=== PATIENT | male | born 1980 | race Caucasian/White ===

== ENCOUNTER 2022-05-09 08:02 | Inpatient (IN) ==
--- NOTE | 2022-05-09 08:11 | Emergency Department Note ---
HPI General Chief complaint: Cold/Flu Symptoms Stated complaint: URI symptoms Time Seen by Provider: 05/09/22 08:11 Source: patient Mode of arrival: ambulatory Limitations: no limitations History of Present Illness HPI Narrative: 41-year-old male with no past medical history presenting with cough and shortness of breath. Patient states he was diagnosed with pneumonia at the emergency department in [place] on April 29. He was started on azithromycin, which he took a full course of, but his symptoms have not been improving. He endorses a cough productive of green sputum and shortness of breath. No fever. Denies any sick contacts. He went to urgent care today and had a chest x-ray which showed almost complete opacification of the left lung, likely pleural effusion or empyema. Sent to the ED for further management. On arrival he is satting 90 to 92% on room air. No chest pain, leg swelling, headache, abdominal pain, vomiting, or difficulty swallowing. No trauma or injury. Related Data Home Medications Medication Instructions Recorded Confirmed No Known Home Meds 05/09/22 05/09/22 Allergies Allergy/AdvReac Type Severity Reaction Status Date / Time Loracarbef [From Lorabid] Allergy Unknown Unknown Verified 05/09/22 07:12 povidone-iodine Allergy Unknown Unknown Verified 05/09/22 07:12 [From Betadine] Sulfa (Sulfonamide Allergy Unknown Unknown Verified 05/09/22 07:12 Antibiotics) Penicillins AdvReac Unknown Unknown Verified 05/09/22 07:12 Review of Systems ROS ROS Narrative: Narrative: Constitutional: Denies fever or chills ENT ED: Denies throat pain Cardiovascular: Denies chest pain Respiratory: Reports shortness of breath and cough Gastrointestinal: Denies abdominal pain, nausea, vomiting or diarrhea Genitourinary: Denies dysuria Musculoskeletal: Denies back pain or joint swelling Integumentary: Denies rash or lesions Neurological: Denies headache or weakness Psychiatric: Denies anxiety Endocrine: Denies fatigue Hematological/Lymphatic: Denies easy bruising PFSH Narrative Patient History Narrative: Narrative: Medical/Surgical/Family History All Active Problems (Updated 05/09/22 @ 13:23 by Modesto Green MD) Clinical sepsis (Acute) Pleural effusion on left (Acute) Pneumonia (Acute) Cough (Acute) Social History Smoking Status: Unknown if ever smoked Exam Narrative Narrative: Narrative: General Limitations: no limitations General appearance: Present alert and in no apparent distress Head Head: Present atraumatic and normocephalic Eye Eye: Present normal appearance and EOMI; Absent scleral icterus or conjunctival injection ENT ENT: Present normal oropharynx and mucous membranes moist Neck Neck: Present normal inspection, full ROM and trachea midline; Absent meningismus or lymphadenopathy Chest Chest: Present symmetric chest wall rise Respiratory Respiratory: Present other (Diminished breath sounds throughout the entire left lung); Absent respiratory distress, wheezes, stridor or accessory muscle use Cardiovascular Cardiovascular: Present normal rhythm and tachycardia; Absent systolic murmur or diastolic murmur Adbominal Abdominal: Present soft; Absent distention, tenderness, guarding, rebound, rigidity, organomegaly or mass Extremities Extremities: Present normal inspection; Absent pretibial edema Back Back: Absent CVA tenderness (R) or CVA tenderness (L) Neurological Neurological: Present alert and oriented X3; Absent motor sensory deficit Psychiatric Psychiatric: Present normal affect and normal mood Skin Skin: Present warm (WNL) and dry Course Consultations Consultation #1: Dr. Green, hospitalist Time: 12:18 Vital Signs Vital signs: Vital Signs Temperature 100.3 F H 05/09/22 08:03 Pulse Rate 140 H 05/09/22 08:03 Respiratory Rate 20 05/09/22 08:03 Blood Pressure 156/103 05/09/22 08:03 Pulse Oximetry (%) 98 05/09/22 08:03 Temperature 96.9 F L 05/09/22 14:05 Pulse Rate 118 H 05/09/22 14:05 Respiratory Rate 20 05/09/22 14:05 Blood Pressure 148/95 05/09/22 14:05 Pulse Oximetry (%) 93 05/09/22 14:05 [facility] Narrative Medical decision making narrative: 41-year-old male presenting with cough and shortness of breath. He is bord vlaerie hypoxic on arrival, placed on 2 L nasal cannula with improvement. COVID and influenza swabs are negative. Likely pneumonia and empyema given chest x- ray findings from today. Radiology consulted and will perform a thoracentesis. Fluid studies ordered. Labs notable for leukocytosis to 15.3 and mild hyponatremia to 130. Lactate is normal 1.5. Blood culture sent. Procalcitonin slightly elevated at 0.18. Dose of IV vancomycin and normal saline bolus ordered. Will plan for admission. 1218: I spoke with Dr. Green, hospitalist, who will admit the patient. Wound culture ordered. Lab Data Lab results reviewed: Yes I reviewed the patient's lab results. Result diagrams: 05/09/22 08:47 05/09/22 08:47 Labs: Lab Results 05/09/22 05/09/22 05/09/22 Range/Units 08:47 08:47 08:47 WBC 15.3 H (4.5-11.0) K/mcL RBC 5.04 (4.63-6.08) M/mcL Hgb 14.5 (13.7-17.5) g/dL Hct 45.7 (40.1-51.0) % MCV 90.7 (80.0-100.0) fL MCH 28.8 (26.0-34.0) pg MCHC 31.7 (31.0-36.0) g/dL RDW 13.6 (11.5-14.5) % Plt Count 515 H (140-440) K/mcL MPV 9.5 (7.4-10.4) fL Neut % (Auto) 82.0 H (38.0-78.0) % Lymph % (Auto) 4.5 L (15.5-49.0) % [place] % (Auto) 12.5 H (1.0-12.0) % Eos % (Auto) 0.5 (0.0-7.0) % Baso % (Auto) 0.5 (0.0-2.0) % Lymph # (Auto) 0.69 L (1.50-4.80) K/mcL [place] # (Auto) 1.90 H (0.10-0.90) K/mcL Eos # (Auto) 0.08 (0.00-0.70) K/mcL Baso # (Auto) 0.07 (0.00-0.30) K/mcL Absolute Neutrophils 12.51 H (1.80-8.00) K/mcL VBG Lactic Acid 1.5 (0.5-2.0) mmol/L Sodium 130 L (133-145) mmol/L Potassium 4.3 (3.3-5.1) mmol/L Chloride 94 L (96-108) mmol/L Carbon Dioxide 19 L (22-30) mmol/L Anion Gap 17.0 H (8.0-16.0) BUN 19 (6-20) mg/dL Creatinine 1.1 (0.7-1.2) mg/dL GFR Calculation 83 Glucose 143 H (70-105) mg/dL Calcium 8.9 (8.6-10.4) mg/dL Total Bilirubin 0.6 (0.1-1.0) mg/dL AST 15 (<40) U/L ALT 13 (<40) U/L Alkaline Phosphatase 76 (39-117) U/L Total Protein 7.2 (5.9-8.4) gm/dL Albumin 2.6 L (3.2-5.2) gm/dL Globulin 4.6 H (2.2-3.7) gm/dL Albumin/Globulin Ratio 0.6 L (1.0-2.3) Procalcitonin (<0.10) ng/mL Pleural Total Protein gm/dL Pleural Albumin gm/dL Pleural LDH (<122) U/L Pleural Glucose mg/dL Pleural Amylase U/L 05/09/22 05/09/22 Range/Units 08:47 10:45 WBC (4.5-11.0) K/mcL RBC (4.63-6.08) M/mcL Hgb (13.7-17.5) g/dL Hct (40.1-51.0) % MCV (80.0-100.0) fL MCH (26.0-34.0) pg MCHC (31.0-36.0) g/dL RDW (11.5-14.5) % Plt Count (140-440) K/mcL MPV (7.4-10.4) fL Neut % (Auto) (38.0-78.0) % Lymph % (Auto) (15.5-49.0) % [place] % (Auto) (1.0-12.0) % Eos % (Auto) (0.0-7.0) % Baso % (Auto) (0.0-2.0) % Lymph # (Auto) (1.50-4.80) K/mcL [place] # (Auto) (0.10-0.90) K/mcL Eos # (Auto) (0.00-0.70) K/mcL Baso # (Auto) (0.00-0.30) K/mcL Absolute Neutrophils (1.80-8.00) K/mcL VBG Lactic Acid (0.5-2.0) mmol/L Sodium (133-145) mmol/L Potassium (3.3-5.1) mmol/L Chloride (96-108) mmol/L Carbon Dioxide (22-30) mmol/L Anion Gap (8.0-16.0) BUN (6-20) mg/dL Creatinine (0.7-1.2) mg/dL GFR Calculation Glucose (70-105) mg/dL Calcium (8.6-10.4) mg/dL Total Bilirubin (0.1-1.0) mg/dL AST (<40) U/L ALT (<40) U/L Alkaline Phosphatase (39-117) U/L Total Protein (5.9-8.4) gm/dL Albumin (3.2-5.2) gm/dL Globulin (2.2-3.7) gm/dL Albumin/Globulin Ratio (1.0-2.3) Procalcitonin 0.18 H (<0.10) ng/mL Pleural Total Protein 4.7 gm/dL Pleural Albumin 2.7 gm/dL Pleural LDH 1214 H (<122) U/L Pleural Glucose < 2 mg/dL Pleural Amylase 21 U/L ED POC Tests ED POC Tests: NILAY - Influenza A Negative NILAY - Influenza B Negative NILAY - SARS Antigen Negative Radiology Data Radiology results reviewed: Yes I reviewed the patient's radiology results. Radiology results narrative: Ordering Physician:Deric Longoria PA-C Date of Service:05/09/22 Procedure(s):XR chest 2V CLINICAL INFORMATION: Cough and dyspnea COMPARISON: 04/29/2022 TECHNIQUE: PA and Lateral views FINDINGS: Subtotal opacification of the entire left thorax likely represents massive pleural effusion which has shifted the cardiomediastinal silhouette rightward. There is minimal residual left apical aeration. Right lung is well-expanded and clear. Cardiomediastinal silhouette and pulmonary vasculature are normal. IMPRESSION: Complete opacification of the left thorax by volume occupying process. This is most compatible with a massive left pleural effusion. Suggest ultrasound-guided thoracentesis Interpreted and Authenticated by: Russell Lozada 05/09/22 EKG Data EKG #1: EKG attestation: Yes I reviewed and interpreted this EKG. and Yes There are no EKG findings of acute coronary syndrome EKG results narrative: Sinus tachycardia at [address] elevation or depression. Interpretation: no acute changes Discharge Plan Patient/Caregiver Discharge Instructions Pt seen by [employer]/PA only: No Clinical Impression: Pleural effusion on left Patient Disposition: Xfer As Inpt ([facility]) Discharge Date/Time: 05/09/22 13:40 Discharge Comment: to room 108 @[id number]
[2022-05-09] MEDS ORDERED: 0.9 % SODIUM CHLORIDE 1,000 ML IV ONE ×3 (08:18→11:03)
[2022-05-09] MEDS ORDERED: ACETAMINOPHEN 1,000 MG/100 ML BAG IV ONE (08:30)
[2022-05-09] MEDS ORDERED: morphine 4 MG/ML VIAL IV ONE (08:30)
[2022-05-09] MEDS ORDERED: LEVOFLOXACIN 750 MG/150 ML BAG IV ONE (08:33)
[2022-05-09 09:28] LABS: Basophils # (Auto) 0.07 K/mcL (0.00-0.30); Basophils % (Auto) 0.5 % (0.0-2.0); Eosinophils # (Auto) 0.08 K/mcL (0.00-0.70); Eosinophils % (Auto) 0.5 % (0.0-7.0); Hematocrit 45.7 % (40.1-51.0); Hemoglobin 14.5 g/dL (13.7-17.5); Lymphocytes # (Auto) 0.69 K/mcL (1.50-4.80); Lymphocytes % (Auto) 4.5 % (15.5-49.0); Mean Cell Volume 90.7 fL (80.0-100.0); Mean Corpuscular HGB Conc 31.7 g/dL (31.0-36.0); Mean Platelet Volume 9.5 fL (7.4-10.4); Monocytes % (Auto) 12.5 % (1.0-12.0); Platelet Count 515 K/mcL (140-440); RBC 5.04 M/mcL (4.63-6.08); Red Cell Distribution Width 13.6 % (11.5-14.5); WBC 15.3 K/mcL (4.5-11.0)
[2022-05-09 09:57] LABS: ALT/SGPT 13 U/L (<40); AST/SGOT 15 U/L (<40); Albumin 2.6 gm/dL (3.2-5.2); Albumin/Globulin Ratio 0.6 (1.0-2.3); Alkaline Phosphatase 76 U/L (39-117); Bilirubin,Total 0.6 mg/dL (0.1-1.0); Blood Urea Nitrogen 19 mg/dL (6-20); Calcium 8.9 mg/dL (8.6-10.4); Carbon Dioxide 19 mmol/L (22-30); Chloride 94 mmol/L (96-108); Globulin 4.6 gm/dL (2.2-3.7); Glomerular Filtration Rate 83; Glucose 143 mg/dL (70-105)
--- NOTE | 2022-05-09 11:48 | Ultrasound Report ---
Ultrasound-guided thoracentesis CLINICAL INFORMATION: Large left pleural effusion TECHNIQUE: Procedure and risks including possibility of bleeding, infection, and pneumothorax were explained to the patient. They understood and wished to proceed. With the patient in upright position, the fluid was first sonographically localized over the posterior left 10th intercostal space at posterior axillary line. The skin overlying this region was marked, prepped and locally anesthetized with 1% lidocaine using a 25-gauge needle to the level the parietal pleura. An 18-gauge Yueh needle was then advanced under sonographic guidance into the pleural fluid and 2 L of simple appearing transudative fluid was aspirated. Post procedure scanning shows moderate residual fluid. Patient tolerated procedure well without apparent complication. Follow-up chest x-ray to be obtained IMPRESSION: Successful thoracentesis yielding 2 L of transudative appearing simple pleural fluid. No apparent complication Interpreted and Authenticated by: Russell Lozada 05/09/22
--- NOTE | 2022-05-09 11:49 | XRay Report ---
CLINICAL INFORMATION: Postthoracentesis-2 L the left pleural space COMPARISON: 05/09/2022 TECHNIQUE: Portable FINDINGS: The heart size, mediastinum and pulmonary vessels are unremarkable. Following left thoracentesis of 2 L of fluid, there is still a large residual left pleural effusion. The left apex is partially reexpanded but the entire left lower lobe and inferior left upper lobe remain compressed by fluid. No pneumothorax IMPRESSION: Large residual left pleural effusion following thoracentesis. Consider surgical consultation suggested complex Interpreted and Authenticated by: Russell Lozada 05/09/22
--- NOTE | 2022-05-09 13:07 | Internal Med History&Physical ---
HPI History of Present Illness Patient information: Note initiated : 05/09/22 at 1:05 pm Service Date, if different from initiated Date: [] Patient: Mejia Wallis 41 y/o M admitted on for URI Symptoms. Chief Complaint: [cough and shortness of breath ] Chief complaint: cough and shortness of breath History of present illness: Mr. Wallis is a 41 year old M history of recent pneumonia, presenting with 3- day history of cough, sputum productions, and shortness of breath. Patient stated that he was being diagnosed with and treated for pneumonia on April 29, 2022. Due to his allergies to penicillin, he was being prescribed azithromycin. He finished the course of the antibiotics, and he initially felt better. However, over the last couple of days, he is complaining of worsening shortness of breath, cough, and sputum productions with white and yellow sputum. He is also complaining of left-sided chest pain, parotic, whenever he coughs. He is also complaining of diaphoresis but denies any subjective fever or chills. He denies any respiratory wheezings. Vital signs at ED presentations significant for low-grade fever with T-max 37.9, tachycardia with heart rate went up to 140s, as well as oxygen saturating at 87% on room air. He was being started on 2 L/min of supplemental oxygen therapy. Labs significant for negative for COVID-pneumonia and influenza. Presents for leukocytosis with WBC 15.3. Lactic acid 1.5. Chest x-ray showed presence of large left-sided pleural effusions. Radiologist was consulted who performed pleurocentesis with removal of 2 L of yellow/tolerating aspirate. Constitutional Constitutional: Absent chills, excessive sweating, fatigue, fever(s) or weakness EENT Eyes: Absent blurry vision, change in vision, loss of vision or other visual disturbances Ears: Absent decreased hearing or tinnitus Nose, mouth and throat: Absent abnormal hearing, dry mouth, headache(s), nasal congestion or sore throat Cardiovascular Cardiovascular: Absent chest pain, chest pain at rest, edema, irregular heart rhythm or palpatations Respiratory Respiratory: Present cough, dyspnea, excessive phlegm production and pain with cough; Absent wheezing Gastrointestinal Gastrointestinal: Absent abdominal pain, constipation, diarrhea, nausea or vomiting Musculoskeletal Musculoskeletal: Absent back pain, deformity, limited range of motion, muscle cramps, muscle weakness or numbness Integumentary Integumentary: Absent lesions, rash or wounds Neurological Neurological: Absent focal weakness, headache(s) or numbness Psychiatric Psychiatric: Absent anxiety, depression or hallucinations PFSH PFSH All Active Problems (Updated 05/09/22 @ 13:23 by Modesto Green MD) Clinical sepsis (Acute) Pleural effusion on left (Acute) Pneumonia (Acute) Cough (Acute) MEDS/ALLERGIES Home Medications and Allergies Home Medications Medication Instructions Recorded Confirmed Type No Known Home Meds 05/09/22 05/09/22 History Allergies Allergy/AdvReac Type Severity Reaction Status Date / Time Loracarbef [From Lorabid] Allergy Unknown Unknown Verified 05/09/22 07:12 povidone-iodine Allergy Unknown Unknown Verified 05/09/22 07:12 [From Betadine] Sulfa (Sulfonamide Allergy Unknown Unknown Verified 05/09/22 07:12 Antibiotics) Penicillins AdvReac Unknown Unknown Verified 05/09/22 07:12 EXAM Constitutional Vitals: Temp Pulse Resp BP Pulse Ox 38.3 C H 109 H 20 130/93 93 05/09/22 08:43 05/09/22 12:00 05/09/22 08:03 05/09/22 12:00 05/09/22 12:00 General appearance: cooperative and no acute distress Head Head exam: Present atraumatic and normocephalic Eye Eye exam: Present EOMI and PERRL ENT ENT exam: Present mucous membranes moist, normal exam and normal external ear exam Additional comments: Nasal cannula in place Neck Neck exam: Present normal inspection; Absent lymphadenopathy, tenderness or thyromegaly Respiratory Respiratory exam: Present chest wall tenderness, decreased breath sounds and rhonchi; Absent accessory muscle use, respiratory distress or wheezes Cardiovascular Cardiovascular exam: Present normal rate and rhythm; Absent JVD GI/Abdominal GI/Abdominal exam: Present normal bowel sounds and soft; Absent organomegaly or tenderness Rectal Rectal exam: Present deferred Extremities Exam Extremities exam: Present full ROM, normal capillary refill and normal inspection; Absent tenderness Neurological Exam Neurological exam: Present alert, CN II-XII intact and oriented X3; Absent motor sensory deficit Psychiatric Psychiatric exam: Present normal affect and normal mood; Absent anxious or depressed Skin Skin exam: Present dry and intact DATA Data Completed and Pending Labs: Labs from last 24 hours 05/09/22 05/09/2205/09/22 10:45 08:47 08:47 WBC RBC Hgb Hct MCV MCH MCHC RDW Plt Count MPV Neut % (Auto) Lymph % (Auto) [place] % (Auto) Eos % (Auto) Baso % (Auto) Lymph # (Auto) [place] # (Auto) Eos # (Auto) Baso # (Auto) Absolute Neutrophils VBG Lactic Acid 1.5 Sodium Potassium Chloride Carbon Dioxide Anion Gap BUN Creatinine GFR Calculation Glucose Calcium Total Bilirubin AST ALT Alkaline Phosphatase Total Protein Albumin Globulin Albumin/Globulin Ratio Procalcitonin 0.18 H Pleural Fluid Source Pending Pleural Color Pending Pleural Appearance Pending Pleural RBC Pending Pleural Nuc Cells Pending Pleural Neutrophils Pending Pleural Lymphocytes Pending Pleural Total Protein Pending Pleural Albumin Pending Pleural LDH Pending Pleural Glucose Pending Pleural Amylase Pending 05/09/22 05/09/22 08:47 08:47 WBC 15.3 H RBC 5.04 Hgb 14.5 Hct 45.7 MCV 90.7 MCH 28.8 MCHC 31.7 RDW 13.6 Plt Count 515 H MPV 9.5 Neut % (Auto) 82.0 H Lymph % (Auto) 4.5 L [place] % (Auto) 12.5 H Eos % (Auto) 0.5 Baso % (Auto) 0.5 Lymph # (Auto) 0.69 L [place] # (Auto) 1.90 H Eos # (Auto) 0.08 Baso # (Auto) 0.07 Absolute Neutrophils 12.51 H VBG Lactic Acid Sodium 130 L Potassium 4.3 Chloride 94 L Carbon Dioxide 19 L Anion Gap 17.0 H BUN 19 Creatinine 1.1 GFR Calculation 83 Glucose 143 H Calcium 8.9 Total Bilirubin 0.6 AST 15 ALT 13 Alkaline Phosphatase 76 Total Protein 7.2 Albumin 2.6 L Globulin 4.6 H Albumin/Globulin Ratio 0.6 L Procalcitonin Pleural Fluid Source Pleural Color Pleural Appearance Pleural RBC Pleural Nuc Cells Pleural Neutrophils Pleural Lymphocytes Pleural Total Protein Pleural Albumin Pleural LDH Pleural Glucose Pleural Amylase A/P Assessment and plan (1) Pleural effusion on left: Status: Acute (2) Pneumonia: Status: Acute (3) Clinical sepsis: Status: Acute Narrative A/P Narrative: Assessment and Plans: 1. Pneumonia with associated empyema and clinical sepsis: Inpatient med surg s/p pleuracentesis with removal of 2L pleural fluid, pending fluid analysis including cell count and differential, gram stain and culture Repeat chest x-ray showing residual large left-sided pleural effusions, will order CT chest with contrast to rule out loculated empyema. I personally called on-call general surgeons Dr. Canchola who recommend if the study does show a loculated empyema, consider consulting CT surgery. Status post fluid boluses in the ED, to follow-up right NS at 100 cc/h Serial lactic acid Blood culture cbc w/ auto diff in the morning to trend WBC Levaquin (due to penicillin allergy and failed Zithromax) Tylenol PRN fever/mild pain Ibuprofen PRN moderate pain Morphine IV PRN severe pain DuoNEB NEB PRN wheezing Robitussin PRN cough Supplemental oxygen therapy GI ppx: not currently indicated DVT ppx: Lovenox Code status: Full Prognosis: guarded Disposition: Inpatient med surg Time Spent With Patient Time: Total time spent is greater than 50% in coordination of care (as documented) at patient's floor/unit and/or counseling patient: Total time spent with greater than 50% in coordination of care (as documented) at patient's floor/unit and/or counseling patient:: 50 - 70 minutes
[2022-05-09 13:24] LABS: LDH,Pleural Fluid 1214 U/L (<122); Total Protein,Pleural Fluid 4.7 gm/dL
[2022-05-09 13:25] LABS: Amylase,Pleural Fluid 21 U/L; Glucose,Pleural Fluid < 2 mg/dL
[2022-05-09] MEDS ORDERED: IPRATROPIUM/ALBUTEROL 3 ML AMPUL.NEB NEB PRN (13:47)
[2022-05-09] MEDS ORDERED: ZOLPIDEM 5 MG TABLET PO PRN (13:47)
[2022-05-09] MEDS ORDERED: guaiFENesin/DEXTROMETHORPHAN ORAL SOL PO PRN (13:47)
[2022-05-09] MEDS ORDERED: ONDANSETRON 4 MG/2 ML VIAL IV PRN (13:47)
[2022-05-09] MEDS: 0.9 % SODIUM CHLORIDE 10 ML SYRINGE IV SCH ×2 (13:57→22:00)
[2022-05-09] MEDS: 0.9 % SODIUM CHLORIDE 1,000 ML IV SCH (13:57)
[2022-05-09] MEDS ORDERED: ONDANSETRON 4 MG/2 ML VIAL ONE (14:00)
[2022-05-09] MEDS ORDERED: KETAMINE 50 MG/ML Syringe (ANEST) IV ONE (14:00)
[2022-05-09] MEDS ORDERED: DEXAMETHASONE 10 MG/ML VIAL ONE (14:00)
[2022-05-09] MEDS ORDERED: PROPOFOL 200 MG/20 ML VIAL IV ONE (14:00)
[2022-05-09] MEDS ORDERED: GLYCOPYRROLATE 0.2 MG/ML VIAL IV ONE (14:00)
[2022-05-09] MEDS ORDERED: MIDAZOLAM 2 MG/2 ML VIAL ONE (14:00)
[2022-05-09] MEDS ORDERED: LIDOCAINE HCL/PF 100 MG/5 ML SYRINGE IV ONE (14:00)
[2022-05-09] MEDS ORDERED: fentaNYL 100 MCG/2 ML VIAL IV ONE (14:00)
[2022-05-09] MEDS ORDERED: IOPAMIDOL 100 ML BOTTLE IV ONE (15:04)
--- NOTE | 2022-05-09 15:24 | Cat Scan Report ---
CLINICAL INFORMATION: Large left pleural effusion. COMPARISON: None. TECHNIQUE: 80 cc of Isovue-370 were injected intravenously, and 25 seconds later, 0.625 mm helical slices were obtained from the lung apices through the bases. Following reconstruction, 2.5 mm sagittal, coronal and axial reformations were processed and reviewed at lung, mediastinal and bone windows. 7 mm axial MIPS were also obtained to optimize pulmonary nodule detection. The exam was performed using radiation dose optimization techniques including, but not limited to, automated exposure control, adjustment of the mA and/or kV according to patient size and use of iterative reconstruction technique. FINDINGS: Pulmonary parenchymal windows show a large left pleural effusion resulting in compressive atelectasis of the left lower lobe lingula and anterior segment of the left upper lobe. The apical posterior segment of the left upper lobe is aerated. There is also a portion of the superior segment left lower lobe which is aerated. The right lung is well-expanded and clear. Mild underlying chronic bronchitis changes noted. Mediastinal windows show the thoracic aorta and pulmonary arteries are opacified and normal in contour and caliber. A few mildly enlarged lymph nodes lower mediastinum and hilum are unchanged from the recent CT and compatible with benign reactive adenopathy. The esophagus is grossly normal. Heart is normal in size and configuration without significant plaque in the coronary arteries. Thyroid is normal. Bones and soft tissues of the chest wall show no abnormality. Images through the superior abdomen show no abnormality. IMPRESSION: 1. Large left pleural effusion resulting in compressive atelectasis of the left lower lobe, lingula and anterior segment left upper lobe. Apical posterior segment left upper lobe remains aerated. The reason for the effusion is inapparent on the basis of this exam. 2. Mild reactive adenopathy in the lower mediastinum and hilum. Interpreted and Authenticated by: Russell Lozada 05/09/22
[2022-05-09 15:32] LABS: Appearance,Pleural Fluid Cloudy; Color,Pleural Fluid Yellow; Lymphocytes,Pleural Fluid 3 %; Monocytes,Pleural Fluid 1 %; Neutrophils,Pleural Fluid 96 %; Nucleated Cells,Pleural Fld 34724 /cumm; RBC,Pleural Fluid <50,000 /cumm
[2022-05-09] MEDS: ACETAMINOPHEN 325 MG TABLET PO PRN ×2 (16:16→20:14)
[2022-05-09] MEDS: morphine 4 MG/ML VIAL IV PRN ×2 (16:25→20:15)
[2022-05-09] MEDS: IBUPROFEN 600 MG TABLET PO PRN (19:03)
[2022-05-09] MEDS: DOCUSATE SODIUM 100 MG CAPSULE PO SCH (20:13)
[2022-05-09] MEDS ORDERED: SENNOSIDES 1 TABLET PO SCH (21:00)
[2022-05-10] MEDS: 0.9 % SODIUM CHLORIDE 1,000 ML IV SCH ×4 (00:22→20:00)
[2022-05-10] MEDS: morphine 4 MG/ML VIAL IV PRN ×8 (00:22→19:24)
[2022-05-10] MEDS: IBUPROFEN 600 MG TABLET PO PRN (03:11)
[2022-05-10] MEDS: ACETAMINOPHEN 325 MG TABLET PO PRN (03:11)
[2022-05-10] MEDS ORDERED: ACETAMINOPHEN 650 MG/65 ML BAG IV PRN (03:31)
[2022-05-10] MEDS ORDERED: morphine 4 MG/ML VIAL IV PRN (03:31)
[2022-05-10] MEDS ORDERED: ACETAMINOPHEN 1,000 MG/100 ML BAG IV ONE ×2 (04:07→14:51)
[2022-05-10] MEDS: 0.9 % SODIUM CHLORIDE 10 ML SYRINGE IV SCH ×2 (04:51→17:41)
[2022-05-10 08:07] LABS: Basophils # (Auto) 0.11 K/mcL (0.00-0.30); Eosinophils % (Auto) 3.7 % (0.0-7.0); Hematocrit 43.5 % (40.1-51.0); Hemoglobin 13.6 g/dL (13.7-17.5); Lymphocytes # (Auto) 0.36 K/mcL (1.50-4.80); Lymphocytes % (Auto) 3.3 % (15.5-49.0); Mean Corpuscular HGB Conc 31.3 g/dL (31.0-36.0); Mean Platelet Volume 9.5 fL (7.4-10.4); Monocytes # (Auto) 1.32 K/mcL (0.10-0.90); Monocytes % (Auto) 12.1 % (1.0-12.0); Platelet Count 451 K/mcL (140-440); RBC 4.78 M/mcL (4.63-6.08); Red Cell Distribution Width 13.7 % (11.5-14.5); WBC 10.9 K/mcL (4.5-11.0)
[2022-05-10] MEDS: DOCUSATE SODIUM 100 MG CAPSULE PO SCH (08:08)
[2022-05-10 08:11] LABS: ALT/SGPT 11 U/L (<40); AST/SGOT 14 U/L (<40); Albumin 2.5 gm/dL (3.2-5.2); Albumin/Globulin Ratio 0.6 (1.0-2.3); Alkaline Phosphatase 70 U/L (39-117); Bilirubin,Total 0.4 mg/dL (0.1-1.0); Blood Urea Nitrogen 10 mg/dL (6-20); Calcium 8.7 mg/dL (8.6-10.4); Carbon Dioxide 21 mmol/L (22-30); Chloride 100 mmol/L (96-108); Globulin 3.9 gm/dL (2.2-3.7); Glomerular Filtration Rate 93; Glucose 108 mg/dL (70-105)
[2022-05-10] MEDS ORDERED: LEVOFLOXACIN 750 MG/150 ML BAG IV SCH (09:00)
[2022-05-10] MEDS ORDERED: ENOXAPARIN 40 MG/0.4 ML SYRINGE SQ SCH (09:00)
[2022-05-10 09:17] LABS: Neutrophils % (Auto) 79.9 % (38.0-78.0)
--- NOTE | 2022-05-10 11:15 | Internal Med Progress Note ---
SUBJECTIVE Subjective Patient information: Note initiated : 05/10/22 at 11:10 am Service Date, if different from initiated Date: [] Patient: Mejia Wallis 41 y/o M admitted on 05/09/22 for URI Symptoms. Chief Complaint: [] Interval history: History of present illness: Mr. Wallis is a 41 year old M history of recent pneumonia, presenting with 3- day history of cough, sputum productions, and shortness of breath. Patient stated that he was being diagnosed with and treated for pneumonia on April 29, 2022. Due to his allergies to penicillin, he was being prescribed azithromycin. He finished the course of the antibiotics, and he initially felt better. However, over the last couple of days, he is complaining of worsening shortness of breath, cough, and sputum productions with white and yellow sputum. He is also complaining of left-sided chest pain, parotic, whenever he coughs. He is also complaining of diaphoresis but denies any subjective fever or chills. He denies any respiratory wheezings. Vital signs at ED presentations significant for low-grade fever with T-max 37.9, tachycardia with heart rate went up to 140s, as well as oxygen saturating at 87% on room air. He was being started on 2 L/min of supplemental oxygen therapy. Labs significant for negative for COVID-pneumonia and influenza. Presents for leukocytosis with WBC 15.3. Lactic acid 1.5. Chest x-ray showed presence of large left-sided pleural effusions. Radiologist was consulted who performed pleurocentesis with removal of 2 L of yellow/tolerating aspirate. 05/10: Fever with T-max 39.0 overnight. Patient is currently on [address] of the chest with contrast performed after thoracentesis showing residual large left pleural effusions. Blood culture no growth today. I spoke with Dr. Canchola general surgeon who recommend transferring the patient to another facility with CT surgery available for chest tube and other indicated procedures. Patient is complaining of improving degree of shortness of breath. He is continue to complaining of productive cough with right sputum. He is complaining of left- sided chest pain whenever he coughs. He denies any respiratory wheezings. He is complaining of subjective fever overnight. Continue IV Levaquin for the time being. Continue supplemental oxygen therapy. Constitutional Vitals: Vital Signs Temp Pulse Resp BP Pulse Ox 36.6 C 112 H 20 137/84 96 05/10/22 07:43 05/10/22 07:43 05/10/22 07:43 05/10/22 07:43 05/10/22 07:43 Period Temp Pulse Resp BP Sys/Rodriguez Pulse Ox Last 24 Hr 36.1 C-39.0 C 90-130 20-36 122-148/81-95 89-98 Intake and Output 05/09/22 05/10/22 05/10/22 21:59 05:59 13:59 Intake Total 0 2119 Output Total 1025 Balance 0 1094 Weight 120.837 kg Intake & Output: Intake & Output 05/09/22 05/10/22 05/10/22 21:59 05:59 13:59 Intake Total 0 2119 Output Total 1025 Balance 0 1094 Weight 120.837 kg Intake: IV 1065 Sodium Chloride 0.9% 1,000 ml @ 1000 100 mls/hr IV .Q10H SEVERIANO Rx#: [id number] Oral 0 1054 Output: Void Amount 1025 Other: Urine Appearance Clear Urine Color Dark Kelli # Voids 0 Head Head exam: Present atraumatic and normal inspection Eye Eye exam: Present normal appearance ENT ENT exam: Present mucous membranes moist, normal exam and normal external ear exam Additional comments: nasal cannula oxygen in place Neck Neck exam: Present normal inspection Respiratory Respiratory exam: Present decreased breath sounds (left); Absent normal respiratory exam Cardiovascular Cardiovascular exam: Present normal rate and rhythm GI/Abdominal GI/Abdominal exam: Present normal bowel sounds Back Exam Back exam: Present normal inspection Neurological Exam Neurological exam: Present alert and oriented X3 Skin Skin exam: Present intact and warm OBJ DATA Labs CBC & Chem 7: 05/10/22 05:38 05/10/22 05:38 Labs: Abnormal Lab Results 05/10/22 05/10/22 05/09/22 05:38 05:38 10:45 WBC Hgb 13.6 L Plt Count 451 H Neut % (Auto) 79.9 H Lymph % (Auto) 3.3 L [place] % (Auto) 12.1 H Lymph # (Auto) 0.36 L [place] # (Auto) 1.32 H Absolute Neutrophils 8.70 H Sodium 132 L Chloride Carbon Dioxide 21 L Anion Gap Glucose 108 H Albumin 2.5 L Globulin 3.9 H Albumin/Globulin Ratio 0.6 L Procalcitonin Pleural LDH 1214 H 05/09/22 05/09/22 05/09/22 08:47 08:47 08:47 WBC 15.3 H Hgb Plt Count 515 H Neut % (Auto) 82.0 H Lymph % (Auto) 4.5 L [place] % (Auto) 12.5 H Lymph # (Auto) 0.69 L [place] # (Auto) 1.90 H Absolute Neutrophils 12.51 H Sodium 130 L Chloride 94 L Carbon Dioxide 19 L Anion Gap 17.0 H Glucose 143 H Albumin 2.6 L Globulin 4.6 H Albumin/Globulin Ratio 0.6 L Procalcitonin 0.18 H Pleural LDH Meds: Medications Acetaminophen (Acetaminophen 325 Mg Tablet) 650 mg PO Q6HP PRN; Protocol PRN Reason: Per Pain Protocol/Fever > 101 Last Admin: 05/10/22 03:11 Dose: 650 mg Documented by: Albuterol/Ipratropium (Ipratropium/Albuterol 3 Ml Ampul.Neb) 3 ml NEB Q4HRT PRN PRN Reason: Wheezing Docusate Sodium (Docusate Sodium 100 Mg Capsule) 100 mg PO BID [facility] Last Admin: 05/10/22 08:08 Dose: 100 mg Documented by: Enoxaparin Sodium (Enoxaparin 40 Mg/0.4 Ml Syringe) 40 mg SQ DAILY [facility] Last Admin: 05/10/22 08:08 Dose: 40 mg Documented by: Guaifenesin (Guaifenesin/Dextromethorphan Oral Claudia) 10 ml PO Q4HP PRN PRN Reason: Cough Last Admin: 05/10/22 03:48 Dose: 10 ml Documented by: Sodium Chloride (Sodium Chloride 0.9%) 1,000 mls @ 100 mls/hr IV .Q10H [facility] Last Admin: 05/10/22 00:22 Dose: 100 mls/hr Documented by: Levofloxacin (Levaquin) 750 mg in 150 mls @ 100 mls/hr IV Q24H SEVERIANO; Protocol Last Admin: 05/10/22 08:49 Dose: 100 mls/hr Documented by: Acetaminophen (Ofirmev) 650 mg in 65 mls @ 130 mls/hr IV Q6HP PRN; Protocol PRN Reason: PAIN/FEVER > 101 Last Infusion: 05/10/22 04:30 Dose: Infused Documented by: Ibuprofen (Ibuprofen 600 Mg Tablet) 600 mg PO QIDP PRN; Protocol PRN Reason: Per Pain Protocol/Fever > 101 Last Admin: 05/10/22 03:11 Dose: 600 mg Documented by: Morphine Sulfate (Morphine 4 Mg/Ml Vial) 4 mg IV Q2HP PRN; Protocol PRN Reason: Per Pain Protocol Last Admin: 05/10/22 10:26 Dose: 4 mg Documented by: Ondansetron HCl (Ondansetron 4 Mg/2 Ml Vial) 4 mg IV Q6HP PRN PRN Reason: Nausea And Vomiting Senna (Sennosides 1 Tablet) 2 tab PO HS [facility] Last Admin: 05/09/22 21:00 Dose: Not Given Documented by: Sodium Chloride (0.9 % Sodium Chloride 10 Ml Syringe) 10 ml IV Q8 [facility] Last Admin: 05/10/22 04:51 Dose: Not Given Documented by: Zolpidem Tartrate (Zolpidem 5 Mg Tablet) 5 mg PO HSP PRN PRN Reason: Insomnia Last Admin: 05/10/22 00:22 Dose: 5 mg Documented by: A/P Assessment and plan (1) Pleural effusion on left: Status: Acute (2) Pneumonia: Status: Acute (3) Clinical sepsis: Status: Acute Narrative A/P Narrative: Assessment and Plans: 1. Pneumonia with associated empyema and clinical sepsis: Inpatient med surg s/p pleuracentesis with removal of 2L pleural fluid, pending fluid analysis including cell count and differential, gram stain and culture Pleural fluid analysis suggestive of exudative pleural effusion CT of the chest with contrast performed after thoracentesis showing residual large left pleural effusions I spoke with Dr. Canchola general surgeon who recommend transferring the patient to another facility with CT surgery available for chest tube and other indicated procedures Status post fluid boluses in the ED, to follow-up right NS at 100 cc/h Serial lactic acid Blood culture, no growth to date cbc w/ auto diff in the morning to trend WBC Levaquin (due to penicillin allergy and failed Zithromax) Tylenol PRN fever/mild pain Ibuprofen PRN moderate pain Morphine IV PRN severe pain DuoNEB NEB PRN wheezing Robitussin PRN cough Supplemental oxygen therapy, currently at 4L/min GI ppx: not currently indicated DVT ppx: Lovenox Code status: Full Prognosis: guarded Disposition: Inpatient med surg Time Spent With Patient Time: Total time spent is greater than 50% in coordination of care (as documented) at patient's floor/unit and/or counseling patient: Total time spent with greater than 50% in coordination of care (as documented) at patient's floor/unit and/or counseling patient:: 35 - 50 minutes QUALITY Stroke Symptom Onset Unknown: No VTE Deep Vein Thrombosis/Pulmonary Embolism Present on Admission: No
--- NOTE | 2022-05-10 12:41 | EKG ---
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
--- NOTE | 2022-05-10 14:00 | General Surgery Consult Note ---
HPI Data of Consult Patient: new to practice Consult date: 05/10/22 Requesting physician: Modesto Green Primary Care Provider: PCP No Consult Narrative Patient Information: Note initiated : 05/10/22 at 1:55 pm Service Date, if different from initiated Date: [] Patient: Mejia Wallis 41 y/o M admitted on 05/09/22 for URI Symptoms. Chief Complaint: [] This is a pleasant 41-year-old gentleman who presented to the emergency room with left-sided shortness of breath and chest pain. Work-up in the emergency room was significant for chest x-ray with a large pleural effusion, he was admitted for further work-up, underwent a thoracentesis by radiology who took off 2 L of fluid. Post procedure patient still had large whiteout of the left lung therefore CT scan was done which is significant for a large pleural effusion. Patient denies any prior history of inner sort of pulmonary problems, quit smoking greater than 6 years ago, has no cough, known no pneumonia, no history of COVID, no prior shortness of breath or other difficulties. Thoracentesis fluid was sent for culture which is negative thus far and for pathology without results as of yet. I was asked to see the patient to place a chest tube in preparation for transfer to thoracic surgeon if pleural effusion does not resolve. Chief complaint: sob Reason for consult: sob cc:: CC: Modesto Green MD Review of Systems Review of systems: All systems are reviewed, negative other than above PFSH PFSH All Active Problems (Updated 05/09/22 @ 13:23 by Modesto Green MD) Clinical sepsis (Acute) Pleural effusion on left (Acute) Pneumonia (Acute) Cough (Acute) MEDS/ALLERGIES Home Medications and Allergies Home Medications Medication Instructions Recorded Confirmed Type No Known Home Meds 05/09/22 05/09/22 History Allergies Allergy/AdvReac Type Severity Reaction Status Date / Time droperidol [From Inapsine] Allergy Intermediate Agitated Verified 05/10/22 13:47 Loracarbef [From Lorabid] Allergy Mild Hives Verified 05/10/22 13:47 Penicillins Allergy Mild Hives Verified 05/10/22 13:47 Sulfa (Sulfonamide Allergy Mild Hives Verified 05/10/22 13:47 Antibiotics) povidone-iodine AdvReac Mild Redness of Verified 05/10/22 13:47 [From Betadine] Skin Physical Examination Vital Signs Vital signs: Temp Pulse Resp BP Pulse Ox 98.2 F 116 H 22 128/70 94 05/10/22 11:33 05/10/22 11:33 05/10/22 11:33 05/10/22 11:33 05/10/22 11:33 General physical appearance General physical exam: well developed, well nourished and no distress Eyes Eye exam: PERRL and normal ocular movement ENT ENT exam: normal pinna, normal nares, normal mucosa, no hearing loss and no congestion Head Head exam IM: Present atraumatic and normocephalic Neck Neck exam: no masses, no bruits, trachea midline, no lymphadenopathy and no venous distension Cardiovascular Cardiovascular exam IM: Present normal rate and rhythm Respiratory Respiratory exam: normal expansion, normal respiratory effort and clear to percussion Respiratory exam: dullness: left and absent breath sounds: left Abdomen Abdomen: Present soft, non tender and bowel sounds Hernia: Present none Genitourinary Genitourinary (Male): Present normal penis with no external lesions Rectum Rectum: Present normal sphincter tone, no hemorrhoids, no tenderness, no masses and no bleeding Integumentary Integumentary: Present no rash, no growths and no abnormal pigmentation Neurologic Neurologic: Present normal coordination and normal sensation Musculoskeletal Musculoskeletal: Present normal gait and normal posture Psychiatric Psychiatric: Present oriented to time, oriented to person, oriented to place, speech is normal and memory intact Results Labs Result diagrams: 05/10/22 05:38 05/10/22 05:38 Labs: Abnormal lab results 05/10/22 05/10/22 Range/Units 05:38 05:38 Hgb 13.6 L (13.7-17.5) g/dL Plt Count 451 H (140-440) K/mcL Neut % (Auto) 79.9 H (38.0-78.0) % Lymph % (Auto) 3.3 L (15.5-49.0) % [place] % (Auto) 12.1 H (1.0-12.0) % Lymph # (Auto) 0.36 L (1.50-4.80) K/mcL [place] # (Auto) 1.32 H (0.10-0.90) K/mcL Absolute Neutrophils 8.70 H (1.80-8.00) K/mcL Sodium 132 L (133-145) mmol/L Carbon Dioxide 21 L (22-30) mmol/L Glucose 108 H (70-105) mg/dL Albumin 2.5 L (3.2-5.2) gm/dL Globulin 3.9 H (2.2-3.7) gm/dL Albumin/Globulin Ratio 0.6 L (1.0-2.3) Diabetes panel 05/10/22 Range/Units 05:38 Sodium 132 L (133-145) mmol/L Potassium 4.3 (3.3-5.1) mmol/L Chloride 100 (96-108) mmol/L Carbon Dioxide 21 L (22-30) mmol/L BUN 10 (6-20) mg/dL Creatinine 1.0 (0.7-1.2) mg/dL Glucose 108 H (70-105) mg/dL Calcium 8.7 (8.6-10.4) mg/dL AST 14 (<40) U/L ALT 11 (<40) U/L Alkaline Phosphatase 70 (39-117) U/L Total Protein 6.4 (5.9-8.4) gm/dL Albumin 2.5 L (3.2-5.2) gm/dL Calcium panel 05/10/22 Range/Units 05:38 Calcium 8.7 (8.6-10.4) mg/dL Albumin 2.5 L (3.2-5.2) gm/dL Pituitary panel 05/10/22 Range/Units 05:38 Sodium 132 L (133-145) mmol/L Potassium 4.3 (3.3-5.1) mmol/L Chloride 100 (96-108) mmol/L Carbon Dioxide 21 L (22-30) mmol/L BUN 10 (6-20) mg/dL Creatinine 1.0 (0.7-1.2) mg/dL Glucose 108 H (70-105) mg/dL Calcium 8.7 (8.6-10.4) mg/dL Adrenal panel 05/10/22 Range/Units 05:38 Sodium 132 L (133-145) mmol/L Potassium 4.3 (3.3-5.1) mmol/L Chloride 100 (96-108) mmol/L Carbon Dioxide 21 L (22-30) mmol/L BUN 10 (6-20) mg/dL Creatinine 1.0 (0.7-1.2) mg/dL Glucose 108 H (70-105) mg/dL Calcium 8.7 (8.6-10.4) mg/dL Total Bilirubin 0.4 (0.1-1.0) mg/dL AST 14 (<40) U/L ALT 11 (<40) U/L Alkaline Phosphatase 70 (39-117) U/L Total Protein 6.4 (5.9-8.4) gm/dL Albumin 2.5 L (3.2-5.2) gm/dL All other labs normal. A/P Assessment and plan (1) Pleural effusion on left: Plan: This is a pleasant 41-year-old gentleman who has a large pleural effusion on his left lung. I was asked to see the patient to place chest tube for further therapy. Risk, benefits, details of procedure discussed with the patient at length he verbalizes understanding and desires to continue. Plan to operating room for left-sided chest tube placement with monitored a [facility] care. Thank you very much for this consultation, please call with any further questions. Status: Acute Time Spent With Patient Time: Total time spent is greater than 50% in coordination of care (as documented) at patient's floor/unit and/or counseling patient:
[2022-05-10] MEDS ORDERED: IPRATROPIUM/ALBUTEROL 3 ML AMPUL.NEB NEB PRN ×2 (14:10→14:51)
[2022-05-10] MEDS ORDERED: FLUMAZENIL 0.1 MG/ML ML IV PRN (14:10)
[2022-05-10] MEDS ORDERED: METHOCARBAMOL 1,000 MG/10 ML VIAL IV PRN (14:10)
[2022-05-10] MEDS ORDERED: ONDANSETRON 4 MG/2 ML VIAL IV PRN (14:10)
[2022-05-10] MEDS ORDERED: METOPROLOL TARTRATE 5 MG/5 ML VIAL IV PRN (14:10)
[2022-05-10] MEDS ORDERED: LABETALOL 5 MG/ML ML IV PRN (14:10)
[2022-05-10] MEDS ORDERED: MEPERIDINE 25 MG/ML VIAL IV PRN (14:10)
[2022-05-10] MEDS ORDERED: NALOXONE HCL 0.4 MG/ML VIAL IV PRN (14:10)
[2022-05-10] MEDS ORDERED: LACTATED RINGERS 250 ML IV PRN (14:10)
[2022-05-10] MEDS ORDERED: LACTATED RINGERS 1,000 ML IV SCH (14:15)
--- NOTE | 2022-05-10 14:28 | Operative Note ---
Brief Operative Note Date of procedure: 05/10/22 Pre-op diagnosis: Left pleural effusion Post-op diagnosis: same Procedure: Left-sided chest tube placement Grafts/Implants: No Anesthesia: MAC Findings: Large left pleural effusion, 3 L of fluid out at initial chest tube placement Complications: none Surgeon: Tucker Canchola Estimated blood loss (cc): 10 Specimens Removed/Pathology: none sent Condition: stable Disposition: floor Operative Note Operative Note: After all risk benefits and alternatives to the procedure discussed with patient length he verbalized understanding and desire to continue with procedure. Patient was taken main operating place supine operative table. Monitored anesthesia care was ministered throughout the case. Patient was draped in the standard sterile surgical fashion. Surgical timeout was taken to verify patient and procedure being performed. 1% lidocaine half percent Marcaine was used for local anesthesia. An incision was made over the seventh rib on the left side and the mid axillary line this is carried down to skin and subcutaneous tissue it was then tunneled up over the fifth rib where the chest cavity was entered. Upon entering large amount of fluid was expressed. Finger sweep was done to break up any loculations that were identified and then a 22 English chest tube catheter was placed into the c hest. He was attached to a pneumo vac where 2500 cc of fluid were initially removed. There is initial 500 cc in the drapes that was suctioned out for total of 3 L of cloudy pleural effusion. The chest tube was then sutured in place with 2 interrupted 0 silk sutures. A clean gauze 4 x 4 and tape dressings were applied. Patient was then awakened from anesthesia transferred postanesthesia care unit awake alert in good condition.
[2022-05-10] MEDS: fentaNYL 100 MCG/2 ML VIAL IV PRN ×4 (14:45→14:52)
[2022-05-10] MEDS ORDERED: LIDOCAINE W/EPI 1% 20 ML, BUPIVACAINE 0.5% 20 ML IJ ONE (14:48)
[2022-05-10] MEDS ORDERED: KETOROLAC 30 MG/ML VIAL IV PRN (14:51)
[2022-05-10] MEDS: HYDROmorphone 0.5 MG/0.5 ML SYRINGE IV PRN ×2 (14:55→15:15)
--- NOTE | 2022-05-10 15:05 | XRay Report ---
CLINICAL INFORMATION: Large left pleural effusion surgical chest tube placement COMPARISON: 05/09/2022 TECHNIQUE: Portable FINDINGS: The heart size, mediastinum and pulmonary vessels are unremarkable. Large bore surgical chest tube has been placed: The tip overlies the left lung apex. Much of the left pleural effusion has been evacuated with moderate residual. Left lung is partially reexpanded with moderate residual atelectasis in the left lower lobe. Right lung remains well-expanded and clear. IMPRESSION: Following left chest tube placement, evacuation of left pleural effusion with moderate residual. Left lung is subtotally reexpanded with persistent left lower lobe atelectasis. Interpreted and Authenticated by: Russell Lozada 05/10/22
--- NOTE | 2022-05-10 18:53 | Discharge Summary ---
Discharge Provider Provider IMPORTANT FOLLOW-UP INFORMATION FOR PCP: Patient information: Note initiated : 05/10/22 at 6:50 pm Service Date, if different from initiated Date: [] Patient: Mejia Wallis 41 y/o M admitted on 05/09/22 for URI Symptoms. Chief Complaint: [] Date of admission: 05/09/22 13:40 Discharge date: 05/10/22 Primary care physician: PCP No Attending physician on admission: Modesto Gamino Pui Consults: 05/09/22 Consult to Physician [CONS] Stat Comment: Consulting Provider: Ava Melendez Reason For Exam: Physician to Consult 05/10/22 13:15 Consult to Physician [CONS] Routine Comment: chest tube for pleural effusion, left Consulting Provider: Tucker Canchola Reason For Exam: Physician to Consult Attending physician on discharge: Modesto Gamino Pui COURSE Hospital Course Hospital course: History of present illness: Mr. Wallis is a 41 year old M history of recent pneumonia, presenting with 3- day history of cough, sputum productions, and shortness of breath. Patient stated that he was being diagnosed with and treated for pneumonia on April 29, 2022. Due to his allergies to penicillin, he was being prescribed azithromycin. He finished the course of the antibiotics, and he initially felt better. However, over the last couple of days, he is complaining of worsening shortness of breath, cough, and sputum productions with white and yellow sputum. He is also complaining of left-sided chest pain, parotic, whenever he coughs. He is also complaining of diaphoresis but denies any subjective fever or chills. He denies any respiratory wheezings. Vital signs at ED presentations significant for low-grade fever with T-max 37.9, tachycardia with heart rate went up to 140s, as well as oxygen saturating at 87% on room air. He was being started on 2 L/min of supplemental oxygen therapy. Labs significant for negative for COVID-pneumonia and influenza. Presents for leukocytosis with WBC 15.3. Lactic acid 1.5. Chest x-ray showed presence of large left-sided pleural effusions. Radiologist was consulted who performed pleurocentesis with removal of 2 L of yellow/tolerating aspirate. 05/10: Fever with T-max 39.0 overnight. Patient is currently on [address] of the chest with contrast performed after thoracentesis showing residual large left pleural effusions. Blood culture no growth today. I spoke with Dr. Canchola general surgeon who recommend transferring the patient to another facility with CT surgery available for chest tube and other indicated procedures. Patient is complaining of improving degree of shortness of breath. He is continue to complaining of productive cough with right sputum. He is complaining of left- sided chest pain whenever he coughs. He denies any respiratory wheezings. He is complaining of subjective fever overnight. Continue IV Levaquin for the time being. Continue supplemental oxygen therapy. Dr. Canchola performed chest tube placement with removal of 3L pleural fluid. Accepted by and being discharged to [facility] Dr. Dixon for tPA/DNase therapy. Discharge diagnosis: Empyema Time Spent with Patient Time attestation: Total time spent providing and/or coordinating discharge services: Time spent: Less than 30 minutes EXAM Constitutional Vitals: Temp Pulse Resp BP Pulse Ox 37.3 C H 110 H 18 129/83 91 05/10/22 16:00 05/10/22 18:07 05/10/22 18:07 05/10/22 18:07 05/10/22 18:24 General appearance: cooperative and no acute distress Head Head exam: Present atraumatic and normocephalic Eye Eye exam: Present EOMI and PERRL ENT ENT exam: Present mucous membranes moist, normal exam and normal external ear exam Additional comments: Nasal cannula in place Neck Neck exam: Present normal inspection; Absent lymphadenopathy, tenderness or thyromegaly Respiratory Respiratory exam: Present decreased breath sounds; Absent accessory muscle use, respiratory distress or wheezes Cardiovascular Cardiovascular exam: Present normal rate and rhythm; Absent JVD GI/Abdominal GI/Abdominal exam: Present normal bowel sounds and soft; Absent organomegaly or tenderness Rectal Rectal exam: Present deferred Extremities Exam Extremities exam: Present full ROM, normal capillary refill and normal inspection; Absent tenderness Neurological Exam Neurological exam: Present alert, CN II-XII intact and oriented X3; Absent motor sensory deficit Psychiatric Psychiatric exam: Present normal affect and normal mood; Absent anxious or depressed Skin Skin exam: Present dry and intact Discharge Data Data Completed and Pending Labs on day of discharge: Labs from last 24 hours 05/10/22 05/10/22 05:38 05:38 WBC 10.9 RBC 4.78 Hgb 13.6 L Hct 43.5 MCV 91.0 MCH 28.5 MCHC 31.3 RDW 13.7 Plt Count 451 H MPV 9.5 Neut % (Auto) 79.9 H Lymph % (Auto) 3.3 L [place] % (Auto) 12.1 H Eos % (Auto) 3.7 Baso % (Auto) 1.0 Lymph # (Auto) 0.36 L [place] # (Auto) 1.32 H Eos # (Auto) 0.40 Baso # (Auto) 0.11 Absolute Neutrophils 8.70 H Sodium 132 L Potassium 4.3 Chloride 100 Carbon Dioxide 21 L Anion Gap 11.0 BUN 10 Creatinine 1.0 GFR Calculation 93 Glucose 108 H Calcium 8.7 Total Bilirubin 0.4 AST 14 ALT 11 Alkaline Phosphatase 70 Total Protein 6.4 Albumin 2.5 L Globulin 3.9 H Albumin/Globulin Ratio 0.6 L Preliminary micro results at discharge 05/09/22 10:45 Gram Stain - Preliminary Pleural Fluid Body Fluid Culture - Preliminary 05/09/22 08:52 Blood Culture - Preliminary Blood 05/09/22 08:47 Blood Culture - Preliminary Blood Discharge Plan Patient/Caregiver Discharge Instructions Activity: increase activity as tolerated Diet: Regular Diet Prescriptions: No Action No Known Home Meds 0RF Follow Up Plan Follow up with: Unknown,Unknown [Referring] - Patient Disposition: Xfer Other Rehab Potential: Undetermined I certify that the patient requires SNF services: No Overall status at discharge: patient is not back to baseline Discharge Orders: Discharge Order (Routine); Ordered 05/10/22 Ordered By: Modesto TOVAR VTE Deep Vein Thrombosis/Pulmonary Embolism Present on Admission: No
== END 2022-05-10 19:40 | disposition other institution (70) | DRG 871 ==
LOC: ED 08:02 → MEDSUR 13:40
PROVIDERS: ADMIT Internal Medicine; ATTEND Internal Medicine